=== PATIENT | female | born 1990 | race Two or more races ===

== ENCOUNTER 2018-05-30 13:15 | Inpatient (IN) | payer OTHER ==
[~2018-05-30] VITALS: Ht 162.6 cm; Wt 93.0 kg
[2018-06-21] MEDS ORDERED: ZANTAC150 M3 PO (06:54)
[2018-06-21] MEDS ORDERED: PRENATAL FORMU1 EAC1 PO (06:59)
[2018-06-21] MEDS ORDERED: TUMS ULTRA400 MG PO (06:59)
== END 2018-06-23 11:55 | disposition home or self-care (01) | DRG 807 ==
LOC: LDR 06-21 06:09 → OB/GYN 06-21 18:12
PROVIDERS: ADMIT Obstetrics & Gynecology Maternal & Fetal Medicine
PROC: 10E0XZZ Delivery of Products of Conception, External Approach (ICD-10-PCS; principal; 2018-06-21)
PROC: 0KQM0ZZ Repair Perineum Muscle, Open Approach (ICD-10-PCS; 2018-06-21)
PROC: 0W8NXZZ Division of Female Perineum, External Approach (ICD-10-PCS; 2018-06-21)
PROC: 10907ZC Drainage of Amniotic Fluid, Therapeutic from Products of Conception, Via Natural or Artificial Opening (ICD-10-PCS; 2018-06-21)
PROC: 3E033VJ Introduction of Other Hormone into Peripheral Vein, Percutaneous Approach (ICD-10-PCS; 2018-06-21)
PROC: 4A1HXCZ Monitoring of Products of Conception, Cardiac Rate, External Approach (ICD-10-PCS; 2018-06-21)
DX: O70.1 Second degree perineal laceration during delivery (principal); Z37.0 Single live birth; Z3A.39 39 weeks gestation of pregnancy

== ENCOUNTER 2018-06-20 13:35 | Outpatient (CLI) | payer OTHER ==
[2018-06-21] MEDS ORDERED: ZANTAC150 M3 PO (06:54)
[2018-06-21] MEDS ORDERED: PRENATAL FORMU1 EAC1 PO (06:59)
[2018-06-21] MEDS ORDERED: TUMS ULTRA400 MG PO (06:59)
== END 2018-06-20 15:32 | disposition home or self-care (01) ==
LOC: NST 13:35
DX: Z34.83 Encounter for supervision of other normal pregnancy, third trimester (principal)